=== PATIENT | female | born 1970 | race Two or more races ===

== ENCOUNTER → 2024-05-06 | Outpatient (CLI) | payer MEDICAID, SELFPAY ==
--- NOTE | 2024-05-06 15:05 | XR_ITS ---
Examination: PA lateral chest 2 views TECHNIQUE: Upright PA lateral chest 2 views Exam date and time: May 06, 2024 1541 hours Comparison July 29, 2022 INDICATIONS: Coughing beginning one week ago. FINDINGS: Stable nodule left upper lobe No interval pneumonia or pulmonary edema Normal heart size IMPRESSION: No interval pneumonia or pulmonary edema
== END | disposition home or self-care (01) ==
PROVIDERS: PCP Obstetrics & Gynecology; Referring Provider Obstetrics & Gynecology; Visit Provider Obstetrics & Gynecology
DX: R05.9 Cough, unspecified (principal)
CPT/HCPCS: 71046

== ENCOUNTER 2024-11-23 20:38 | Inpatient (IN) | payer MEDICAID, SELFPAY ==
--- NOTE | 2024-11-23 20:44 | EKG_ITS ---
[facility] Test Date: 2024-11-23 Pat Name: LEESA LEDEZMA Department: Room: - Gender: Female Corporate Legal Manager: : 1970 Requested By: ED Temporary Provider Order Number: [id number] Reading MD: ED Temporary Provider Measurements Intervals [place] Rate: 113 P: 17 AL: 146 QRS: 23 QRSD: 82 T: 0 QT: 285 QTc: 391 Interpretive Statements SINUS TACHYCARDIA NONSPECIFIC T-WAVE ABNORMALITY ABNORMAL RHYTHM ECG Compared to ECG 07/29/2022 14:02:15 Sinus rhythm no longer present Sinus arrhythmia no longer present T-wave abnormality still present /store/S0/[id number].pdf
[2024-11-23 20:45] VITALS: BP 181/104; PULSE 113; RESP 16; TEMP 37.1; O2SAT 97
--- NOTE | 2024-11-23 20:51 | PD.EDRME ---
Rapid Medical Screening Exam RME Arrival date/time: 11/23/24 20:38 Chief Complaint: General Adult/Misc Complain Time Seen by Provider: 11/23/24 21:24 Vital signs: Vital Signs Temperature 98.8 F 11/23/24 20:45 Pulse Rate 113 H 11/23/24 20:45 Respiratory Rate 16 11/23/24 20:45 Blood Pressure 181/104 H 11/23/24 20:45 Pulse Oximetry (%) 97 11/23/24 20:45 Oxygen Delivery Method Room Air 11/23/24 20:45 RME Narrative: Daughter reports left facial droop, left arm heaviness and left leg shaking x 2 hours. Patient c/o bad headache.
--- NOTE | 2024-11-23 20:52 | XR_ITS ---
Examination: CT brain head without contrast. 2-D sagittal coronal reconstructions Date and time of exam:November 23, 2024 2104 hours INDICATIONS: Stroke alert, onset focal neurologic deficits and a left facial droop CTDI: vol (mGy):48 DLP: (mGycm):950 Technique: Multiple CT axial sections of the brain have been obtained, 5 mm slice thickness. Contrast has not been administered. 2-D sagittal, coronal reconstructions have been obtained Low dose protocols were performed. One or more of the following dose reduction techniques were used; automated exposure control, adjustment of the mA and/or KV according to patient size, use of iterative reconstruction technique. Findings: No significant ventricular enlargement. Small cerebral calcifications Intra-axial or extra-axial hemorrhage density is not seen. No mass effect or midline shift Basal cisterns are not remarkable. Fourth ventricle is midline. Cranial vault intact. Impression: Negative for acute hemorrhage, mass effect or midline shift Brain MRI follow-up would best assess for demyelinating disease, acute ischemic change
--- NOTE | 2024-11-23 20:52 | XR_ITS ---
Examination: CTA carotids with intravenous contrast CTA brain, head with intravenous contrast. 2-D sagittal, coronal reconstructions. 3-D reconstructions. Exam date and time: November 23, 2024 2108 hours INDICATIONS: Stroke alert, onset left-sided body weakness today CTDI: vol (mGy) 11 DLP: (mGycm) 441 Technique: Multiple CTA axial brain, head carotid images post intravenous contrast injection 95 cc, Isovue-370. 2-D sagittal, coronal reconstructions. 3-D reconstructions, 3-D post processing including vascular maximum intensity projection images. Low dose protocols were performed. One or more of the following dose reduction techniques were used; automated exposure control, adjustment of the mA and/or KV according to patient size, use of iterative reconstruction technique. 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
--- NOTE | 2024-11-23 21:03 | PC.NURSE ---
DR. HECTOR SLATER FROM [facility] CALLED FOR CONSULT TO R/O STROKE.
[2024-11-23 21:13] LABS: Basophils # (Auto) 0.0 Thou/mm3 (0.0-0.2); Basophils % (Auto) 0 % (0-2.5); Eosinophils # (Auto) 0.1 Thou/mm3 (0.0-0.5); Eosinophils % (Auto) 1 % (0-10); Hematocrit 44.7 % (36.0-46.0); Hemoglobin 15.8 g/dL (12.0-16.0); Immature Granulocytes Auto 0.03 Thou/mm3 (0.00-0.00); Lymphocytes # (Auto) 1.7 Thou/mm3 (1.0-4.8); Lymphocytes % (Auto) 19 % (10-50); Mean Corpuscular HGB Conc 35.3 g/dl (31.0-37.0); Mean Corpuscular Hemoglobin 31.3 pg (25.0-35.0); Mean Corpuscular Volume 89 fL (80-100); Monocytes # (Auto) 0.8 Thou/mm3 (0.0-0.8); Monocytes % (Auto) 9 % (0-12); Neutrophils # (Auto) 6.3 Thou/mm3 (1.8-7.7); Neutrophils % (Auto) 70 % (37-80); Nucleated Red Blood Cell # 0.00 Thou/mm3 (0.00-0.00); Nucleated Red Blood Cell % 0 /100 WBC (0); Platelet Count 248 Thou/mm3 (140-440); RDW Standard Deviation 40.7 fL (36.4-46.3); Red Blood Count 5.04 Miln/mm3 (4.00-5.20); White Blood Count 9.0 Thou/mm3 (3.6-11.0)
[2024-11-23 21:23] VITALS: PULSE 112
[2024-11-23 21:27] VITALS: BP 151/96; PULSE 109; RESP 20; TEMP 37; O2SAT 100
[2024-11-23 21:27] LABS: INR 0.9 (0.9-1.3); Partial Thromboplastin Time 28.4 Seconds (22.0-36.0); Prothrombin Time 10.4 Seconds (9.0-12.2)
[2024-11-23 21:39] LABS: Alanine Aminotransferase 25 U/L (10-49); Albumin, Serum 4.9 gm/dL (3.5-5.0); Albumin/Globulin Ratio 1.6 (1.2-2.2); Alkaline Phosphatase 149 U/L (46-116); Anion Gap 7 (7-16); Aspartate Amino Transferase 19 U/L (0-34); BUN/Creatinine Ratio 13 Ratio (12-20); Bilirubin,Total 0.7 mg/dL (0.3-1.2); Blood Urea Nitrogen 9 mg/dL (9-23); Calcium 10.7 mg/dL (8.3-10.6); Calcium (Corrected) 10.7 mg/dL (8.5-10.1); Carbon Dioxide 27.0 mMol/L (20.0-31.0); Chloride 104 mMol/L (98-107); Creatinine (Component) 0.7 mg/dL (0.6-1.3); Globulin 3.0 gm/dL (2.3-3.5); Glucose 169 mg/dL (74-106); Magnesium 2.1 mg/dL (1.6-2.6); Osmolality,Calculated 278 (275-295); Potassium 4.1 mMol/L (3.4-5.1); Sodium 138 mMol/L (136-145); Total Protein 7.9 gm/dL (5.7-8.2); Troponin I < 0.002 ng/mL (0.0-0.045); eGFR > 60 See Note
--- NOTE | 2024-11-23 21:42 | ESCONSULT_ITS ---
Tele Neuro Consultation Consultation Date 11/23/24 Most Recent Vital Signs Last Vital Signs Temp 98.6 F 11/23/24 21:27 Pulse 109 H 11/23/24 21:27 Resp 20 11/23/24 21:27 BP 151/96 H 11/23/24 21:27 Pulse Ox 100 11/23/24 21:27 O2 Del Method Room Air 11/23/24 21:27 Laboratory-Coagulation Panel PT 10.4 Seconds (9.0-12.2) 11/23/24 21:01 INR 0.9 (0.9-1.3) 11/23/24 21:01 APTT 28.4 Seconds (22.0-36.0) 11/23/24 21:01 Consultation Narrative [facility] Patient Name:???Eli Paredes Date of :???1970 Identification Number:??? Date of Service:???11/23/2024 20:56:09 Diagnosis:?G45.9 - Transient cerebral ischemic attack, unspecified Impression: ?54yoF hx of DM and HTN present with transient episode of left arm numbness. CT head neg for acute finding. Current exam with NIHSS 0. Patient confirmed she is back to baseline. She reports intermittent left sided symptoms recently, most recent episode 3 weeks ago. Presentation concerning for TIA, recommend admission for further workup. ? ?CTA prelim read neg for LVO, pending report. ? ?Recommendation ?- DAPT for 21 days follow by aspirin 81mg daily ?- Permissive HTN for 24hr. ?- MR brain w/o ?-TTE w/ bubble ?-Lipid panel (Goal LDL <70) ?-HgA1c (goal <7%) ?-Start or continue high intensity statin ? Our recommendations are outlined below. Recommendations: ? Stroke/Telemetry Floor ? Neuro Checks (Q4) ? Bedside Swallow Eval ? DVT Prophylaxis ? IV Fluids, Normal Saline ? Head of Bed 30 Degrees ? Euglycemia and Avoid Hyperthermia (PRN Acetaminophen) ? Bolus with Clopidogrel 300 mg bolus x1 and initiate dual antiplatelet th erapy with Aspirin 81 mg daily and Clopidogrel 75 mg daily ? Antihypertensives PRN if Blood pressure is greater than 220/120 or there is a concern for End organ damage/contraindications for permissive HTN. If blood pressure is greater than 220/120 give labetalol PO or IV or Vasotec IV with a goal of 15% reduction in BP during the first 24 hours. Sign Out: ? Discussed with Emergency Department Provider Advanced Imaging: CTA Head and Neck Completed. LVO:No Patient is not a candidate for CORDELIA Metrics: Last Known Well: 11/23/2024 18:00:00 Dispatch Time: 11/23/2024 20:56:09 Arrival Time: 11/23/2024 20:40:00 Initial Response Time: 11/23/2024 21:02:27Symptoms: left arm numbness . Initial patient interaction: 11/23/2024 21:05:15 NIHSS Assessment Completed: 11/23/2024 21:12:21Patient is not a candidate for Thrombolytic. Thrombolytic Medical Decision: 11/23/2024 21:12:22Patient was not deemed candidate for Thrombolytic because of following reasons: Resolved symptoms . CT Head: CT head unremarkable for acute infarction or hemorrhage per Radiology: Impression: Negative for acute hemorrhage, mass effect, or midline shift. I personally reviewed all the CT images that were available to me and it showed: no acute finding Primary Provider Notified of Diagnostic Impression and Management Plan on: 11/23/2024 21:36:39 History of Present Illness:Patient is a 54 year old Female. Patient was brought by private transportation with symptoms of left arm numbness . Patient confirmed that around 6PM while she was on the way home she suddenly developed numbness involving her whole left arm. She denies neck pain or radiating pain down her arm. She had some pain on top of her head. Daughter also told her she had some left facial droop. She also report there were some difficulty using her left arm. The symptoms went away by 7pm. Patient reports she had previous episodes of transient left sided symptoms. Last one was 3 weeks ago with left leg shakiness associated with elevated glucose. At time of teleneuro eval patient confirmed she is back to baseline. Past Medical History: ?Hypertension ?Diabetes Mellitus Other PMH:? DM, HTN Medications: No Anticoagulant use? No Antiplatelet use Reviewed EMR for current medications Allergies:? Reviewed,NKDA Social History: Smoking: No Alcohol Use: No Family History: There is no family history of premature cerebrovascular disease pertinent to this consultation ROS : 14 Points Review of Systems was performed and was negative except mentioned in HPI. Past Surgical History: There Is No Surgical History Contributory To Today?s Visit Examination: BP(181/104),?Pulse(113),?Blood Glucose(177) 1A: Level of Consciousness - Alert; keenly responsive?+ 0 1B: Ask Month and Age - Both Questions Right?+ 0 1C: Blink Eyes & Squeeze Hands - Performs Both Tasks?+ 0 2: Test Horizontal Extraocular Movements - Normal?+ 0 3: Test Visual Martinez - No Visual Loss?+ 0 4: Test Facial Palsy (Use Grimace if Obtunded) - Normal symmetry?+ 0 5A: Test Left Arm Motor Drift - No Drift for 10 Seconds?+ 0 5B: Test Right Arm Motor Drift - No Drift for 10 Seconds?+ 0 6A: Test Left Leg Motor Drift - No Drift for 5 Seconds?+ 0 6B: Test Right Leg Motor Drift - No Drift for 5 Seconds?+ 0 7: Test Limb Ataxia (FNF/Heel-Alfred) - No Ataxia?+ 0 8: Test Sensation - Normal; No sensory loss?+ 0 9: Test Language/Aphasia - Normal; No aphasia?+ 0 10: Test Dysarthria - Normal?+ 0 11: Test Extinction/Inattention - No abnormality?+ 0 NIHSS Score:?0 Pre-Morbid Modified [place] Scale:0 Points = No symptoms at all Spoke with :?Dr. Soria This consult was conducted in real time using interactive audio and video technology. Patient was informed of the technology being used for this visit and agreed to proceed. Patient located in hospital and provider located at home/office setting. Patient is being evaluated for possible acute neurologic impairment and high probability of imminent or life-threatening deterioration. I spent total of 40 minutes providing care to this patient, including time for face to face visit via telemedicine, review of medical records, imaging studies and discussion of findings with providers, the patient and/or family. Dr Kash Christensen [facility] For Inpatient follow-up with [facility] physician please call [facility] at . As we are not an outpatient service for any post hospital discharge needs please contact the hospital for assistance. If you have any questions for the [facility] physicians or need to reconsult for clinical or diagnostic changes please contact us via [facility] at .
--- NOTE | 2024-11-23 21:47 | PD.EDNEURO ---
Neuro Symptoms Deficit-RME/HPI General Chief Complaint: General Adult/Misc Complain Stated Complaint: HIGH BLOOD PRESSURE Time Seen by Provider: 11/23/24 21:24 Arrival date/time: 11/23/24 20:38 RME / HPI RME / HPI Narrative: Daughter reports left facial droop, left arm heaviness and left leg shaking x 2 hours. Patient c/o bad headache. DR SORIA MAIN ED EVALUATION: 54 y/o female with Hx of HTN and Type II DM presents to ED c/o LUE and LLE weakness. Patient feels weakness in the left foot and is experiencing spasming in the back of the left thigh. No pain reported overall. Related Data Home Medications ?Medication ?Instructions ?Recorded ?Confirmed dapagliflozin propaned 5 1 tab PO BID 11/24/24 11/24/24 mg-metformin ER 1,000 mg tablet, ext rel 24hr (Xigduo XR) lisinopril 20 mg tablet 20 mg PO DAILY 11/24/24 11/24/24 semaglutide 0.25 mg or 0.5 mg (2 0.25 mg subcut .EVERY WEEK 11/24/24 11/24/24 mg/3 mL) subcutaneous pen injector (Ozempic) Previous Rx's ?Medication ?Instructions ?Recorded aspirin 81 mg tablet 81 mg PO QDAY stroke prevention 30 11/26/24 days #30 tabs atorvastatin 80 mg tablet 80 mg PO HS 30 days #30 tabs 11/26/24 clopidogrel 75 mg tablet 75 mg PO QDAY #21 tabs 11/26/24 Allergies Allergy/AdvReac Type Severity Reaction Status Date / Time No Known Allergies Allergy Unverified 11/25/24 19:47 Review of Systems Review of Systems Systems Reviewed: All systems reviewed, normal except as documented Past Medical History Past Medical History CARDIAC: Positive Hypertension ENDOCRINE: Positive Diabetes Mellitus Type 2 ED Exam Narrative Physical exam: GENERAL APPEARANCE: alert and oriented x 4, well-developed, well-nourished, no acute distress VITALS: All vitals were reviewed and the pulse ox is 100% on room air, which is normal according to my interpretation. HEENT: Normocephalic, atraumatic; pupils equal, round, reactive to light; EOMI; mucous membranes pink, moist; oropharynx clear NECK: Supple LUNGS: CTABL; no wheezes, no rales, no rhonchi HEART: Regular rate, regular rhythm; normal S1, S2; no murmurs ABDOMEN: non distended; normal BS; soft, no tenderness, no guarding, no rebound; no masses, no organomegaly, no hernia BACK: no CVA tenderness EXTREMITIES: atraumatic; no edema NEUROLOGIC: awake; alert and oriented x4; cranial nerves II-XII grossly intact; no focal sensory or motor deficits PSYCHIATRIC: appropriate mood and affect SKIN: warm, dry, normal color; no rashes Course Quality Measures Suspected type of Stroke: TIA Tenecteplase given: Reason(s) TPA not given: Stroke severity too mild (non-disabling) not given stroke Orders Category Date Time Status Patient Condition Routine Admission 11/23/24 22:59 Ordered Aspiration precautions NOW Care 11/23/24 23:00 Completed Bedside Blood Glucose NOW Care 11/23/24 20:52 [address] Sales Driver NOW Care 11/23/24 20:52 Completed Continuous Pulse Oximetry NOW Care 11/23/24 20:52 Completed Continuous Pulse Oximetry NOW Care 11/23/24 22:59 Completed EKG (ED ONLY) *Do not use* NOW Care 11/23/24 20:44 Completed Flu & Pneumonia Vaccine Screen ONCE Care 11/23/24 22:59 Completed Head of Bed Elevation NOW Care 11/23/24 22:59 Completed Insert IV NOW Care 11/23/24 20:52 Completed MRI Screening NOW Care 11/23/24 23:04 Completed Miscellaneous Nursing Order NOW Care 11/23/24 22:59 Completed NPO NOW Care 11/23/24 20:52 Completed NPO NOW Care 11/23/24 23:00 Completed Neuro Check Q4H Care 11/23/24 22:59 Completed Notify provider NEEDED Care 11/23/24 22:59 Completed Nurse Swallow Screen X1 Care 11/23/24 22:59 Completed Nurse Swallow Screen x1 Care 11/23/24 20:52 Completed Seizure precautions NEEDED Care 11/23/24 22:59 Completed Sequential Compression Device QSHIFT Care 11/23/24 22:59 Completed Consult to Neurology / Tele-Neurology Routine Cons 11/23/24 20:52 Active Consult to Neurology / Tele-Neurology Routine Cons 11/23/24 23:02 Active Referral Physical Therapy Routine Cons 11/23/24 23:02 Completed Referral Speech Therapy Routine Cons 11/23/24 23:02 Completed Diet NPO (NOW) Diet 11/23/24 23:[address] angio stroke protocol Stat Exams 11/23/24 20:[address] stroke protocol Stat Exams 11/23/24 20:52 Completed EKG (ED Only) Stat Exams 11/23/24 20:44 Draft CBC AM DRAW Lab 11/24/24 04:20 Completed CBC AM DRAW Lab 11/25/24 06:08 Completed CBC AM DRAW Lab 11/26/24 05:38 Completed CBC Stat Lab 11/23/24 21:01 Completed Comprehensive Metabolic Panel AM DRAW Lab 11/24/24 04:20 Completed Comprehensive Metabolic Panel AM DRAW Lab 11/25/24 06:08 Completed Comprehensive Metabolic Panel AM DRAW Lab 11/26/24 05:38 Completed Comprehensive Metabolic Panel Stat Lab 11/23/24 21:01 Completed Drug Screen,Urine Stat Lab 11/23/24 22:22 Completed Lipid Panel AM DRAW Lab 11/24/24 04:20 Completed Magnesium AM DRAW Lab 11/24/24 04:20 Completed Magnesium AM DRAW Lab 11/25/24 06:08 Completed Magnesium AM DRAW Lab 11/26/24 05:38 Completed Magnesium Stat Lab 11/23/24 21:01 Completed Partial Thromboplastin Time Stat Lab 11/23/24 21:01 Completed Phosphorous AM DRAW Lab 11/24/24 04:20 Completed Phosphorous AM DRAW Lab 11/25/24 06:08 Completed Phosphorous AM DRAW Lab 11/26/24 05:38 Completed Prothrombin Time with INR Stat Lab 11/23/24 21:01 Completed Thyroid Stimulating Hormone AM DRAW Lab 11/24/24 04:20 Completed Troponin I Stat Lab 11/23/24 21:01 Completed Urinalysis Stat Lab 11/23/24 22:22 Completed Acetaminophen Tab [Tylenol Tab] Med 11/23/24 22:59 Discontinued 1,000 mg PO Q6H PRN Acetaminophen Tab [Tylenol Tab] Med 11/23/24 22:59 Discontinued 650 mg PO Q6H PRN Aspirin [Ecotrin] Med 11/23/24 21:37 Discontinued 81 mg PO X1 ONE Clopidogrel [Plavix] Med 11/23/24 21:37 Discontinued 300 mg PO X1 ONE Labetalol IV [Trandate IV] Med 11/23/24 22:59 Discontinued 10 mg IVP Q6H PRN Labetalol IV [Trandate IV] Med 11/23/24 21:24 Discontinued 10 mg IVP X1 ONE Ondansetron Inj [Zofran Inj] Med 11/23/24 20:52 Discontinued 4 mg IVP Q4HR PRN Ondansetron Inj [Zofran Inj] Med 11/24/24 05:58 Discontinued 4 mg IVP Q6H PRN Sodium Chloride 0.9% 1000 ml [Ns] 1,000 ml Med 11/23/24 23:00 Discontinued IV 75 mls/hr Code Status Routine Oth 11/23/24 22:59 Completed Vital Signs Vital signs: Vital Signs Temperature 98.8 F 11/23/24 20:45 Pulse Rate 113 H 11/23/24 20:45 Respiratory Rate 16 11/23/24 20:45 Blood Pressure 181/104 H 11/23/24 20:45 Pulse Oximetry (%) 97 11/23/24 20:45 Oxygen Delivery Method Room Air 11/23/24 20:45 Neuro Symptoms / Deficit MDM Narrative MDM Narrative:: Scribe Attestation: Trice Floyd, am scribing for and in the presence of Dr. Soria. Provider Notation: Although this document has been carefully reviewed, there may still be some phonetic and other typographical errors.? These errors are purely grammatical due to imperfections in the software program and should not be construed in any way to? compromise the substance of the patient's medical care during this visit. Patient data External records reviewed:: [facility] previous records (Reviewed prior ED records from 07/29/22. Patient was seen for Chest pain.) Clinical information provided by:: patient Social determinants that could affect healthcare access:: none Patient has the following chronic illnesses:: Hypertension, Diabetes Mellitus Type 2 How is presenting disease/condition affected by chronic disease/condition?: exacerbated by Evaluation data The following diagnostics were reviewed and interpreted by me:: lab results, radiology exam(s) and EKG tracing(s) (2048: EKG manual reading, my interpretation: sinus tachycardia, rate: 113 bpm, poor R-wave progressions, no acute ischemic changes.) Lab and/or radiology exams considered but not ordered:: None Interpretation Summary: RADIOLOGY Head/Neck CTA: Patient: LEESA LEDEZMA Med. Record#: [id number] Birthdate: 1970 Age/Sex: 54 / F Location: [facility] Attending Dr: Ordering Physician: Morgan Johnson PA-C Date of Service: 11/23/24 Procedure(s): CT angio stroke protocol Accession Number(s): [id number] cc: Tyson Duncan MD; Morgan Johnson PA-C~ Examination: CTA carotids with intravenous contrast CTA brain, head with intravenous contrast. 2-D sagittal, coronal reconstructions. 3-D reconstructions. Exam date and time: November 23, 2024 2108 hours INDICATIONS: Stroke alert, onset left-sided body weakness today CTDI: vol (mGy) 11 DLP: (mGycm) 441 Technique: Multiple CTA axial brain, head carotid images post intravenous contrast injection 95 cc, [id number]. 2-D sagittal, coronal reconstructions. 3-D reconstructions, 3-D post processing including vascular maximum intensity projection images. Low dose protocols were performed. One or more of the following dose reduction techniques were used; automated exposure control, adjustment of the mA and/or KV according to patient size, use of iterative reconstruction technique. 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 Dictated By: Tyson Duncan MD Signed By: <Electronically signed by Tyson Duncan MD in OV> 11/23/242132 Head CT: Patient: LEESA LEDEZMA. Record#: [id number] Birthdate: 1970 Age/Sex: 54 / F Location: [facility] Attending Dr: Ordering Physician: Morgan Johnson PA-C Date of Service: 11/23/24 Procedure(s): CT stroke protocol Accession Number(s): [id number] cc: Tyson Duncan MD; Morgan Johnson PA-C~ Examination: CT brain head without contrast. 2-D sagittal coronal reconstructions Date and time of exam:November 23, 2024 2104 hours INDICATIONS: Stroke alert, onset focal neurologic deficits and a left facial droop CTDI: vol (mGy):48 DLP: (mGycm):950 Technique: Multiple CT axial sections of the brain have been obtained, 5 mm slice thickness. Contrast has not been administered. 2-D sagittal, coronal reconstructions have been obtained Low dose protocols were performed. One or more of the following dose reduction techniques were used; automated exposure control, adjustment of the mA and/or KV according to patient size, use of iterative reconstruction technique. Findings: No significant ventricular enlargement. Small cerebral calcifications Intra-axial or extra-axial hemorrhage density is not seen. No mass effect or midline shift Basal cisterns are not remarkable. Fourth ventricle is midline. Cranial vault intact. Impression: Negative for acute hemorrhage, mass effect or midline shift Brain MRI follow-up would best assess for demyelinating disease, acute ischemic change Dictated By: Tyson Duncan MD Signed By: <Electronically signed by Tyson Duncan MD in OV> 11/23/242107 Medications / Prescriptions Medications or Prescriptions considered but not ordered:: None Medication administrations:: Medication Administration History Discontinued Medications Acetaminophen (Acetaminophen 325 Mg Tablet) 650 mg PO Q6H PRN PRN Reason: Fever >100.4 Stop: 12/23/24 22:58 Last Admin: 11/25/24 00:17 Dose: 650 mg Documented By: SS Acetaminophen (Acetaminophen 325 Mg Tablet) 1,000 mg PO Q6H PRN PRN Reason: PAIN SCALE 1-3 (mild Stop: 12/23/24 22:58 Aspirin (Aspirin Ec 81 Mg Tabec) 81 mg PO X1 ONE Stop: 11/23/24 21:38 Last Admin: 11/23/24 22:07 Dose: 81 mg Documented By: CB Aspirin (Aspirin Ec 81 Mg Tabec) 81 mg PO QDAY JONA Stop: 12/24/24 08:59 Last Admin: 11/25/24 07:16 Dose: Not Given Documented By: MG Non-Admin Reason: Discontinued Aspirin (Aspirin Ec 81 Mg Tabec) 81 mg PO QDAY JONA Stop: 12/24/24 14:44 Last Admin: 11/26/24 08:27 Dose: 81 mg Documented By: Admin: 11/25/24 08:14 Dose: 81 mg Documented By: Admin: 11/24/24 14:52 Dose: 81 mg Documented By: EF Atorvastatin Calcium (Atorvastatin Calcium 20 Mg Tablet) 80 mg PO HS JONA Stop: 12/24/24 20:59 Last Admin: 11/25/24 20:48 Dose: 80 mg Documented By: Admin: 11/24/24 20:24 Dose: 80 mg Documented By: SS Clopidogrel Bisulfate (Clopidogrel Bisulfate 75 Mg Tablet) 300 mg PO X1 ONE Stop: 11/23/24 21:38 Last Admin: 11/23/24 22:04 Dose: 300 mg Documented By: CB Clopidogrel Bisulfate (Clopidogrel Bisulfate 75 Mg Tablet) 75 mg PO QDAY JONA Stop: 12/24/24 08:59 Last Admin: 11/25/24 07:17 Dose: Not Given Documented By: MG Non-Admin Reason: Discontinued Clopidogrel Bisulfate (Clopidogrel Bisulfate 75 Mg Tablet) 75 mg PO QDAY JONA Stop: 12/24/24 14:44 Last Admin: 11/26/24 08:27 Dose: 75 mg Documented By: Admin: 11/25/24 08:14 Dose: 75 mg Documented By: Admin: 11/24/24 14:52 Dose: 75 mg Documented By: EF Dextrose (Dextrose 50%-Water Inj 50 Ml Syringe) 25 ml IV Q15MIN PRN PRN Reason: BG 50-70 responsive npo pt Stop: 12/23/24 23:06 Dextrose (Dextrose 50%-Water Inj 50 Ml Syringe) 50 ml IV Q15MIN PRN PRN Reason: BG <50 OR BG <70 & pt unresponsive Stop: 12/23/24 23:06 Glucagon (Glucagon Inj 1 Mg Vial) 1 mg IM Q15MIN PRN PRN Reason: BG <70, and no IV access Sodium Chloride (Ns) 1,000 mls @ 75 mls/hr IV .[id number] JONA Stop: 12/23/24 22:59 Last Admin: 11/25/24 16:03 Dose: Not Given Documented By: MG Non-Admin Reason: duplicate Admin: 11/25/24 03:28 Dose: 75 mls/hr Documented By: Infusion: 11/25/24 03:28 Dose: Infused Documented By: Admin: 11/24/24 17:58 Dose: 75 mls/hr Documented By: Infusion: 11/24/24 12:32 Dose: Infused Documented By: Admin: 11/23/24 23:12 Dose: 75 mls/hr Documented By: KM Insulin Human Lispro (Insulin Lispro (Admelog) 1 Unit/0.01 Ml Unit) 0 unit SC Q6HR JONA; Protocol Stop: 12/24/24 00:00 Last Admin: 11/25/24 18:00 Dose: Not Given Documented By: MG Non-Admin Reason: not indicated Admin: 11/25/24 12:08 Dose: Not Given Documented By: MG Non-Admin Reason: BG 120 Admin: 11/25/24 06:35 Dose: Not Given Documented By: SS Non-Admin Reason: blood glucose 122 Admin: 11/25/24 00:23 Dose: Not Given Documented By: SS Non-Admin Reason: blood glucose 136 Admin: 11/24/24 17:58 Dose: Not Given Documented By: LW Non-Admin Reason: Per Protocol Admin: 11/24/24 15:15 Dose: Not Given Documented By: EF Non-Admin Reason: BS 132 Admin: 11/24/24 07:20 Dose: Not Given Documented By: ER Non-Admin Reason: Patient Refused Comments: Patient on Ozempic Admin: 11/24/24 00:44 Dose: Not Given Documented By: CB Non-Admin Reason: Per Protocol Insulin Human Lispro (Insulin Lispro (Admelog) 1 Unit/0.01 Ml Unit) 0 unit SC ACHS JONA; Protocol Stop: 12/25/24 20:59 Last Admin: 11/26/24 11:58 Dose: Not Given Documented By: DL Non-Admin Reason: Per Protocol Admin: 11/26/24 07:38 Dose: Not Given Documented By: DL Non-Admin Reason: Per Protocol Admin: 11/25/24 20:43 Dose: Not Given Documented By: MLD Non-Admin Reason: Per Protocol Labetalol HCl (Labetalol Inj 5 Mg/Ml Vial 20 Ml) 10 mg IVP X1 ONE Stop: 11/23/24 21:25 Last Admin: 11/23/24 22:27 Dose: Not Given Documented By: EE Non-Admin Reason: Cancelled by Provider Labetalol HCl (Labetalol Inj 5 Mg/Ml Vial 20 Ml) 10 mg IVP Q6H PRN PRN Reason: SBP>220, DBP>110 Stop: 12/23/24 22:59 Melatonin (Melatonin 3 Mg Tablet) 3 mg PO X1 ONE Stop: 11/24/24 03:09 Last Admin: 11/24/24 03:55 Dose: 3 mg Documented By: KM Melatonin (Melatonin 3 Mg Tablet) 3 mg PO X1 ONE Stop: 11/26/24 01:15 Last Admin: 11/26/24 01:25 Dose: 3 mg Documented By: JENNA Ondansetron HCl (Ondansetron Inj 2 Mg/Ml Inj 2 Ml) 4 mg IVP Q4HR PRN PRN Reason: NAUSEA OR VOMITING Stop: 12/23/24 20:51 Ondansetron HCl (Ondansetron Inj 2 Mg/Ml Inj 2 Ml) 4 mg IVP Q6H PRN; Protocol PRN Reason: NAUSEA OR VOMITING Stop: 12/24/24 05:57 Potassium Chloride (Potassium Chloride 20 Meq Tabcr) 20 meq PO X1 ONE Stop: 11/26/24 08:17 Last Admin: 11/26/24 08:27 Dose: 20 meq Documented By: MAYELIN See above Consultations Consultation(s) initiated? (list below): Yes Consultation #1 (Physician, Specialty, Details): Discussed with Dr. Kash Christensen,Teleneurologist, for consult. Reviewed the patient?s HPI, PMHx, lab and/or radiology results. Treatment plan was discussed. Dr. Christensen advises patient be placed in observation for permissive hypertention and to start a loading dose of Plavix and some baby aspirin. Time: 21:43 Consultation #2 (Physician, Specialty, Details): Discussed with Dr. Winkler for admission. Reviewed the patient?s HPI, PMHx, lab and/or radiology results. Discussed treatment plan. Will accept for admission. Time: 22:38 Diagnosis Neuro Differential Diagnosis: carpal tunnel syndrome, convulsions, delirium, subarachnoid hemorrhage, peripheral neuropathy, cerebrovascular accident, multiple sclerosis and transient cerebral ischemia Most likely diagnosis given after review of the tests above:: TIA Admission Indicated Admission indicated?: indicated Explain why admission is indicated or not indicated:: TIA Admission Request Was there a request for admission?: Yes Admission Attestation Admission request attestation: Discussed case with [] from Hospitalist service regarding admission. Discussed patients ED course, exam findings, labs, and radiology results. The Hospitalist [agrees,declines] to accept the patient for admission. Disposition Plan Disposition Plan: Admit Critical Care Time Critical Care Time Critical Care Time: No Discharge Plan Plan Patient Disposition: Admit Acute Care w/in Hospital Patient condition on transfer: Stable Problem List Clinical Impression: TIA (transient ischemic attack) Patient/Caregiver Discharge Instructions Discharge Activity: activity as tolerated and resume usual activities
[2024-11-23] MEDS: CLOPIDOGREL BISULFATE 75 MG TABLET 300 MG PO (22:04)
[2024-11-23] MEDS: ASPIRIN EC 81 MG TABEC PO (22:07)
[2024-11-23 22:40] LABS: Collection Type, Urine Clean Catch
[2024-11-23 22:49] LABS: Amphetamine/Methamp Scrn,U Negative (Negative); Barbiturate Screen,Urine Negative (Negative); Benzodiazepines Screen,Urine Negative (Negative); Benzoylecgonine Screen, Ur Negative (Negative); Fentanyl Screen,Urine Negative (Negative); Opiate Screen,Urine Negative (Negative); THC Screen,Urine Negative (Negative)
[2024-11-23 22:57] LABS: Bilirubin,Urine Negative (Negative); Blood,Urine Negative (Negative); Clarity,Urine Clear (Clear/Hazy); Color,Urine Colorless (Lt Yel-Yel); Glucose, Urine 4+ (Negative); Ketones,Urine Negative (Negative); Leukocyte Esterase,Urine Positive (Negative); Nitrite,Urine Negative (Negative); PH,Urine 7.0 (5.0-7.0); Protein,Urine Negative (Neg - Trace); RBC,Urine 1 /hpf (0-3); Specific Gravity,Urine 1.041 (1.001-1.035); Squamous Epithelial Cell,Urine 6 /hpf (0-5); Urobilinogen,Urine Negative mg/dL (0.0-1.0); WBC,Urine < 1 /hpf (0-5)
--- NOTE | 2024-11-23 23:08 | PD.RESHP ---
Documentation for date of: 11/23/24 HPI History of Present Illness Chief complaint: Left-sided weakness History of present illness: 54-year-old female with past medical history of hypertension, diabetes who was brought to the ED by daughter due to left-sided weakness. Patient states that around 5-6 PM of 11/23/2024 patient began having left arm and leg numbness, as well as drooping of the left side of the face all around the same time frame. She also endorses a headache rated 6 out of 10 in the parietal occipital region. Patient also states that her blood pressure was elevated at home today with a systolic blood pressure between 170 and 180. Patient states that she has had similar episodes last 1 being around 3 weeks ago which she states were related to her blood sugar being in the high 300s almost 400s. When asked about blood pressure control at home she states her normal is usually around 160. Upon arrival stroke alert was called and teleneurology recommended admission for further CVA workup. During workup and prior to teleneurology consult patient's symptoms had spontaneously resolved. At this time patient denies any fever, chills, shortness of breath, palpitations, chest pain, nausea, vomiting, sick contacts, recent travel ED course: ED vitals: BP 181/104, HR 113, saturating 97% on room air ED labs: CBC unremarkable, CMP unremarkable, UA negative for UTI however plus for glucose noted, U-Tox negative, EKG shows sinus tachycardia, head CT negative for acute hemorrhage, midline shift, mass effect, head/neck CTA shows no significant arterial stenosis. In the ED patient received aspirin 81, loading dose of Plavix, labetalol PMHx: As above SX Hx: None Social Hx: Denies cigarette use, denies alcohol use, denies illicit substances including THC FH X: Unknown Review of Systems Review of Systems Systems Reviewed: All systems reviewed, normal except as documented Narrative Review of Systems: All 12 systems reviewed and found negative unless otherwise stated in the HPI. Exam Vital Signs Temp Pulse Resp BP Pulse Ox O2 Del Method 98.6 F 109 H 20 151/96 H 100 Room Air 11/23/24 21:27 11/23/24 21:27 11/23/24 21:27 11/23/24 21:27 11/23/24 21:27 11/23/24 21:27 Narrative Exam Physical Exam GENERAL: NAD, AAOx3 HEENT: Moist mucosa. Eyes open, symmetrical, & clear, pupils reactive to light bilaterally CARDIO: Heart RRR, no obvious murmurs PULM: No noted coughing/dyspnea CTA B/L, no R/W/R GI: Abdomen soft, nondistended, no pain on palpation. BSx4 SKIN/MSK/EXT: No wounds/rashes/edema/amputations, no pain on palpation. Pedal pulses present B/L NEURO: AAOx3, no focal neuro deficits, able to move all 4 extremities, equal strength and sensation across all 4 extremities Results: Labs 11/23/24 21:01 11/23/24 21:01 Labs: Short CBC 11/23/24 Range/Units 21:01 WBC 9.0 (3.6-11.0) Thou/mm3 Hgb 15.8 (12.0-16.0) g/dL Hct 44.7 (36.0-46.0) % Plt Count 248 (140-440) Thou/mm3 BMP 11/23/24 21:01 Sodium 138 Potassium 4.1 Chloride 104 Carbon Dioxide 27.0 BUN 9 Creatinine 0.7 Glucose 169 H Calcium 10.7 H Cardiac Enzymes 11/23/24 Range/Units 21:01 Troponin I < 0.002 (0.0-0.045) ng/mL Liver Function 11/23/24 Range/Units 21:01 Total Bilirubin 0.7 (0.3-1.2) mg/dL AST 19 (0-34) U/L ALT 25 (10-49) U/L Alkaline Phosphatase 149 H (46-116) U/L Albumin 4.9 (3.5-5.0) gm/dL Urine 11/23/24 Range/Units 22:22 Urine Color Colorless A (Lt Yel-Yel) Urine Clarity Clear (Clear/Hazy) Urine pH 7.0 (5.0-7.0) Ur Specific [place] 1.041 H (1.001-1.035) Urine Protein Negative (Neg - Trace) Urine Glucose (UA) 4+ A (Negative) Quality Measures Quality Measures stroke Suspected type of Stroke: Acute Ischemic Tenecteplase given: Reason(s) Tenecteplase not given: Outside the time window and Stroke severity too mild (non-disabling) not given Rehab services: PT evaluation ordered and Speech Language Pathology eval ordered VTE Prophylaxis: mechanical Antithrombotic by day 2:: not indicated (describe) Statin ordered: <75 y/o high intensity dose Anticoagulation ordered for A-fib or flutter (current or hx): not indicated Medications Home Medications and Allergies Allergies Allergy/AdvReac Type Severity Reaction Status Date / Time NKA* Allergy Uncoded 06/27/13 09:32 Visit Medications Acetaminophen (Acetaminophen 325 Mg Tablet) 650 mg PO Q6H PRN PRN Reason: Fever >100.4 Stop: 12/23/24 22:58 Acetaminophen (Acetaminophen 325 Mg Tablet) 1,000 mg PO Q6H PRN PRN Reason: PAIN SCALE 1-3 (mild Stop: 12/23/24 22:58 Dextrose (Dextrose 50%-Water Inj 50 Ml Syringe) 25 ml IV Q15MIN PRN PRN Reason: BG 50-70 responsive npo pt Stop: 12/23/24 23:06 Dextrose (Dextrose 50%-Water Inj 50 Ml Syringe) 50 ml IV Q15MIN PRN PRN Reason: BG <50 OR BG <70 & pt unresponsive Stop: 12/23/24 23:06 Glucagon (Glucagon Inj 1 Mg Vial) 1 mg IM Q15MIN PRN PRN Reason: BG <70, and no IV access Sodium Chloride (Ns) 1,000 mls @ 75 mls/hr IV .[id number] JONA Stop: 12/23/24 22:59 Insulin Human Lispro (Insulin Lispro (Admelog) 1 Unit/0.01 Ml Unit) 0 unit SC Q6HR JONA; Protocol Stop: 12/24/24 00:00 Labetalol HCl (Labetalol Inj 5 Mg/Ml Vial 20 Ml) 10 mg IVP Q6H PRN PRN Reason: SBP>220, DBP>110 Stop: 12/23/24 22:59 Ondansetron HCl (Ondansetron Inj 2 Mg/Ml Inj 2 Ml) 4 mg IVP Q4HR PRN PRN Reason: NAUSEA OR VOMITING Stop: 12/23/24 20:51 Ondansetron HCl (Ondansetron Inj 2 Mg/Ml Inj 2 Ml) 4 mg IVP Q6H PRN; Protocol PRN Reason: NAUSEA OR VOMITING Stop: 12/23/24 22:58 Discontinued Medications Aspirin (Aspirin Ec 81 Mg Tabec) 81 mg PO X1 ONE Stop: 11/23/24 21:38 Last Admin: 11/23/24 22:07 Dose: 81 mg Clopidogrel Bisulfate (Clopidogrel Bisulfate 75 Mg Tablet) 300 mg PO X1 ONE Stop: 11/23/24 21:38 Last Admin: 11/23/24 22:04 Dose: 300 mg Labetalol HCl (Labetalol Inj 5 Mg/Ml Vial 20 Ml) 10 mg IVP X1 ONE Stop: 11/23/24 21:25 Last Admin: 11/23/24 22:27 Dose: Not Given Assessment & Plan Plan 54-year-old female with past medical history of diabetes and hypertension who presented to the ED due to left-sided weakness. Patient will be admitted for CVA workup. #CVA workup #Left-sided weakness last well-known around 5-6 PM of 11/23/2024 patient began having left arm and leg numbness, as well as drooping of the left side of the face Symptoms resolved spontaneously on arrival to the ED No TNK was administered as NIH stroke scale on teleneuro evaluation was 0 and was out of window ? Permissive hypertension goal blood pressure systolic 150, first 24 hours ? MRI stroke protocol ? Aspirin 81 mg daily ? Plavix 75 mg daily ? High intensity statin ? IV fluids ? N.p.o. till swallow screen/speech eval ? Speech eval consulted, physical therapy consulted ? In-house neurology consulted, appreciate recs ? Labetalol as needed for blood pressure > 220/110 ? Neurochecks every 4 hours #Hypertension Permissive hypertension for first 24 hours, only 15% BP reduction ? Can resume home antihypertensives after first 24 hours #Diabetes mellitus type 2 ?Follow-up A1c ? SSI ? Hypoglycemia protocol in place Health Maintenance: Disposition: Telemetry, stroke workup Fluids: NS Feeding: N.p.o. till speech eval per nurse swallow screen Thrombo prophylaxis: SCDs Gastric Ulcer prophylaxis: None CODE STATUS: Full code Case discussed with my attending Dr. Edison Laboy MD PGY-1 Disclaimer: Despite multiple revisions, due to the dictation software being used, the document bellow may not be free of grammatical errors including phonetic/typographic errors. However, this does not deter from our commitment to providing health care in the patient's best interest in mind. Attending Provider Attestation/Addendum 54-year-old female with diabetes and hypertension was admitted after she felt numbness of the left side involving the arm and leg. She felt numb behind right thigh area. This happened around 6 PM today. She was in her car with her children. She got scared when they were driving at a high location with her daughter on the steering wheel. She said her blood sugar was 118 when they went back home. Her blood pressure was elevated. She took a shower and then her daughters brought her to the ER. She has some pressure-like symptoms on the left side of her head. During my evaluation her symptoms of numbness of the left side are gone completely. She has no syncopalpresyncopal episode. CT scan of the brain without contrast showed no infarct no hemorrhage no midline shift. Blood pressure is 160/90 heart rate 110. special effects technician showed sinus tachycardia. I discussed with and supervised the resident physician who took care of this patient. I agree with the assessment and plan as above.
[2024-11-23] MEDS: SODIUM CHLORIDE 0.9% 1000 ML 1,000 ML 75 ML IV (23:12)
[2024-11-23 23:13] VITALS: BP 160/93; PULSE 103; RESP 16; TEMP 37.3; O2SAT 97
[2024-11-24] VITALS (7 sets, daily range): BP systolic 114–143; BP diastolic 61–97; PULSE 99–117; RESP 15–30; TEMP 36.6–37.2; O2SAT 95–100
[2024-11-24] MEDS: MELATONIN 3 MG TABLET PO (03:55)
[2024-11-24 05:02] LABS: Basophils # (Auto) 0.0 Thou/mm3 (0.0-0.2); Basophils % (Auto) 0 % (0-2.5); Eosinophils # (Auto) 0.1 Thou/mm3 (0.0-0.5); Eosinophils % (Auto) 1 % (0-10); Hematocrit 41.7 % (36.0-46.0); Hemoglobin 14.6 g/dL (12.0-16.0); Immature Granulocytes Auto 0.03 Thou/mm3 (0.00-0.00); Lymphocytes # (Auto) 1.2 Thou/mm3 (1.0-4.8); Lymphocytes % (Auto) 16 % (10-50); Mean Corpuscular HGB Conc 35.0 g/dl (31.0-37.0); Mean Corpuscular Hemoglobin 31.2 pg (25.0-35.0); Mean Corpuscular Volume 89 fL (80-100); Monocytes # (Auto) 0.9 Thou/mm3 (0.0-0.8); Monocytes % (Auto) 11 % (0-12); Neutrophils # (Auto) 5.3 Thou/mm3 (1.8-7.7); Neutrophils % (Auto) 71 % (37-80); Nucleated Red Blood Cell # 0.00 Thou/mm3 (0.00-0.00); Nucleated Red Blood Cell % 0 /100 WBC (0); Platelet Count 228 Thou/mm3 (140-440); RDW Standard Deviation 40.7 fL (36.4-46.3); Red Blood Count 4.68 Miln/mm3 (4.00-5.20); White Blood Count 7.4 Thou/mm3 (3.6-11.0)
[2024-11-24 06:21] LABS: Glucose Estimated Average 151 mg/dL (80-131); Hemoglobin A1C 6.9 % Hgb (4.8-6.0)
[2024-11-24 06:55] LABS: Alanine Aminotransferase 25 U/L (10-49); Albumin, Serum 4.3 gm/dL (3.5-5.0); Albumin/Globulin Ratio 1.5 (1.2-2.2); Alkaline Phosphatase 133 U/L (46-116); Anion Gap 13 (7-16); Aspartate Amino Transferase 22 U/L (0-34); BUN/Creatinine Ratio 13 Ratio (12-20); Bilirubin,Total 0.5 mg/dL (0.3-1.2); Blood Urea Nitrogen 9 mg/dL (9-23); Calcium 9.6 mg/dL (8.3-10.6); Calcium (Corrected) 9.6 mg/dL (8.5-10.1); Carbon Dioxide 21.0 mMol/L (20.0-31.0); Cardiac Risk Estimate 3.0 RATIO (3.7-5.6); Chloride 106 mMol/L (98-107); Cholesterol 140 mg/dL (132-200); Creatinine (Component) 0.7 mg/dL (0.6-1.3); Globulin 2.8 gm/dL (2.3-3.5); Glucose 151 mg/dL (74-106); HDL Cholesterol 46 mg/dL (40-60); LDL Cholesterol,Calculated 73 mg/dL (0-130); Magnesium 2.1 mg/dL (1.6-2.6); Osmolality,Calculated 281 (275-295); Phosphorous 3.3 mg/dL (2.4-5.1); Potassium 4.3 mMol/L (3.4-5.1); Sodium 140 mMol/L (136-145); Thyroid Stimulating Hormone 0.61 uIU/mL (0.55-4.78); Total Protein 7.1 gm/dL (5.7-8.2); Triglycerides 103 mg/dL (30-150); eGFR > 60 See Note
--- NOTE | 2024-11-24 12:12 | PD.RESPRO ---
Documentation for date of: 11/24/24 Subjective Subjective Interval history: Overnight admission for left sided weakness/numbness of the arm and leg along with L facial droop.?Stroke alert was called and admission for stroke rule out was initiated. Patient seen and examined at bedside this AM.?Patient reports that symptoms have resolved. She reports that there was an associated left shoulder pain and headache when symptoms onset last night. Her BP was also high with systolic in the 170-180s. Labs and vitals were reviewed.?She had sinus tachycardia but otherwise BP was trending to normal without any antihypertensives given. Labs were unremarkable other than A1c 6.9. Patient is currently on Ozempic. MRI, echo, and Neuro recommendations are pending. Patient will receive aspirin, Plavix, and statin for now. No further complaints at this time. Review of systems otherwise negative except what is mentioned above. Exam Vital Signs Temp Pulse Resp BP Pulse Ox O2 Del Method 98.3 F 110 H 20 115/86 H 96 Room Air 11/24/24 10:11/24/24 10:11/24/24 10:11/24/24 10:11/24/24 10:11/24/24 10:00 Narrative Exam Physical Exam General: Awake and in no acute distress. Conversational and non-toxic appearing. HEENT: Normocephalic, atraumatic, mucous membranes moist. No facial droop, no slurring of speech or dysarthria. Heart: Regular rate and rhythm, normal S1 and S2, no murmurs. Lungs: Clear to auscultation with no wheezing or crackles. Abdomen: Soft, nondistended, nontender, positive bowel sounds. ?No guarding or rebound tenderness. Neurologic: Alert and oriented x3, no gross neurological deficit, and patient able to move all 4 extremities. Strength 5/5 in bilateral upper and lower extremities, 5/5 finger and mobility architect manager strength according to my examination. Extremities: No edema. Skin: No rash or ecchymoses. Objective Labs 11/24/24 04:20 11/24/24 04:20 Labs: Laboratory Results - last 24 hr 11/23/24 11/23/24 11/24/24 21:01 22:22 04:20 WBC 9.0 7.4 RBC 5.04 4.68 Hgb 15.8 14.6 Hct 44.7 41.7 MCV 89 89 MCH 31.3 31.2 MCHC 35.3 35.0 RDW Std Deviation 40.7 40.7 Plt Count 248 228 Neut % (Auto) 70 71 Lymph % (Auto) 19 16 [place] % (Auto) 9 11 Eos % (Auto) 1 1 Baso % (Auto) 0 0 Neut # (Auto) 6.3 5.3 Lymph # (Auto) 1.7 1.2 [place] # (Auto) 0.8 0.9 H Eos # (Auto) 0.1 0.1 Baso # (Auto) 0.0 0.0 Immature Gran # (Auto) 0.03 H 0.03 H Absolute Nucleated RBC 0.00 0.00 Immature Gran % 0 0 Nucleated RBC % 0 0 PT 10.4 INR 0.9 APTT 28.4 Sodium 138 140 Potassium 4.1 4.3 Chloride 104 106 Carbon Dioxide 27.0 21.0 Anion Gap 7 13 BUN 9 9 Creatinine 0.7 0.7 Estim Creat Clear Calc Not Performed. Not Performed. eGFR > 60 > 60 BUN/Creatinine Ratio 13 13 Glucose [address] Glu mg/dL 151 H Hemoglobin A1c 6.9 H Calculated Osmolality 278 281 Calcium 10.7 H 9.6 Corrected Calcium 10.7 H 9.6 Phosphorus 3.3 Magnesium 2.1 2.1 Total Bilirubin 0.7 0.5 AST 19 22 ALT 25 25 Alkaline Phosphatase 149 H 133 H Troponin I < 0.002 Total Protein 7.9 7.1 Albumin 4.9 4.3 D Globulin 3.0 2.8 Albumin/Globulin Ratio 1.6 1.5 Triglycerides 103 Cholesterol 140 LDL Cholesterol, Calc 73 HDL Cholesterol 46 Cholesterol/HDL Ratio 3.0 L TSH 0.61 Ur Collection Type Clean Catch Urine Color Colorless A Urine Clarity Clear Urine pH 7.0 Ur Specific [place] 1.041 H Urine Protein Negative Urine Glucose (UA) 4+ A Urine Ketones Negative Urine Blood Negative Urine Nitrite Negative Urine Bilirubin Negative Urine Urobilinogen (Auto) Negative Ur Leukocyte Esterase Positive Urine RBC 1 Urine WBC < 1 Ur Squamous Epith Cells 6 H Urine Bacteria None Urine Opiates Screen Negative Urine Fentanyl Screen Negative Ur Barbiturates Screen Negative U Amphetamin/Meth Scrn Negative U Benzodiazepines Scrn Negative U Cocaine Metab Screen Negative U Marijuana (THC) Screen Negative Quality Measures Quality Measures stroke Suspected type of Stroke: Acute Ischemic Tenecteplase given: Reason(s) Tenecteplase not given: Outside the time window and Stroke severity too mild (non-disabling) not given Rehab services: PT evaluation ordered VTE Prophylaxis: pharmaceutical Antithrombotic by day 2:: not indicated (describe) Statin ordered: <75 y/o high intensity dose Anticoagulation ordered for A-fib or flutter (current or hx): not indicated Assessment & Plan Assessment Current Active Medications: Generic Name Dose Route Start Last Admin Trade Name Freq PRN Reason Stop Dose Admin Acetaminophen 650 mg 11/23/24 22:59 Acetaminophen 325 Mg Tablet PO 12/23/24 22:58 Q6H PRN Fever >100.4 Acetaminophen 1,000 mg 11/23/24 22:59 Acetaminophen 325 Mg Tablet PO 12/23/24 22:58 Q6H PRN PAIN SCALE 1-3 (mild Aspirin 81 mg 11/24/24 09:00 Aspirin Ec 81 Mg Tabec PO 12/24/24 08:59 QDAY JONA Atorvastatin Calcium 80 mg 11/24/24 21:00 Atorvastatin Calcium 20 Mg Tablet PO 12/24/24 20:59 HS [facility] Clopidogrel Bisulfate 75 mg 11/24/24 09:00 Clopidogrel Bisulfate 75 Mg Tablet PO 12/24/24 08:59 QDAY JONA Dextrose 25 ml 11/23/24 23:07 Dextrose 50%-Water Inj 50 Ml Syringe IV 12/23/24 23:06 Q15MIN PRN BG 50-70 responsive npo pt Dextrose 50 ml 11/23/24 23:07 Dextrose 50%-Water Inj 50 Ml Syringe IV 12/23/24 23:06 Q15MIN PRN BG <50 OR BG <70 & pt unresponsive Glucagon 1 mg 11/23/24 23:07 Glucagon Inj 1 Mg Vial IM Q15MIN PRN BG <70, and no IV access Sodium Chloride 1,000 mls @ 75 mls/hr 11/23/24 23:00 11/23/24 23:12 Ns IV 12/23/24 22:59 75 mls/hr .[id number] JONA Administration Insulin Human Lispro 0 unit 11/24/24 00:00 11/24/24 07:20 Insulin Lispro (Admelog) 1 Unit/0.01 Ml Unit SC 12/24/24 00:00 Not Given Q6HR [facility] Protocol Labetalol HCl 10 mg 11/23/24 22:59 Labetalol Inj 5 Mg/Ml Vial 20 Ml IVP 12/23/24 22:59 Q6H PRN SBP>220, DBP>110 Ondansetron HCl 4 mg 11/24/24 05:58 Ondansetron Inj 2 Mg/Ml Inj 2 Ml IVP 12/24/24 05:57 Q6H PRN NAUSEA OR VOMITING Protocol Plan 54-year-old female with past medical history of diabetes and hypertension who presented to the ED due to left-sided weakness. Patient will be admitted for CVA workup. #CVA workup, rule out #Left-sided weakness Last well-known around 5-6 PM of 11/23/2024 patient began having left arm and leg numbness, as well as drooping of the left side of the face Symptoms resolved spontaneously on arrival to the ED Possible TIA versus complex migraine versus focal seizure versus musculoskeletal etiology No TNK was administered as NIH stroke scale on teleneuro evaluation was 0 and was out of window ? Permissive hypertension goal blood pressure systolic 150, first 24 hours ? MRI stroke protocol ? Aspirin 81 mg daily ? Plavix 75 mg daily ? High intensity statin ? IV fluids ? Diet resumed, passed swallow screen ? Speech eval consulted, physical therapy consulted ? In-house neurology consulted, appreciate recs ? Labetalol as needed for blood pressure > 220/110 ? Neurochecks every 4 hours #Hypertension Permissive hypertension for first 24 hours, only 15% BP reduction ? Can resume home antihypertensives after first 24 hours #Diabetes mellitus type 2 A1c 6.9 ? SSI ? Hypoglycemia protocol in place Health Maintenance: Disposition: Telemetry, stroke workup Fluids: NS Feeding: N.p.o. till speech eval per nurse swallow screen Thrombo prophylaxis: SCDs Gastric Ulcer prophylaxis: None CODE STATUS: Full code Patient plan of care was discussed with the attending physician, Dr. Mondragon. Mariia Bertrand, PGY-2 Attending Provider Attestation/Addendum I have discussed and was present for the essential components of the history, physical examination, diagnosis, and treatment plan with the resident. I agree with the patient's care as documented by the resident and amended herein by me. David Mondragon DO. Patient seen and evaluated this AM. No acute events overnight, patient denies any residual deficits, on physical exam findings I did not appreciate any facial droop however left shoulder shrug may be slightly weaker than right as well as left shoulder flexion. MRI pending, echo pending, patient will continue on aspirin, Plavix and statin per neurology recommendations. A1c 6.9%, LDL 73. Will continue to monitor closely and patient doing well otherwise. Will likely continue DAPT for 21 days and then switch to aspirin alone pending final neurology recommendations. Although this document has been carefully reviewed, there may still be some phonetic and other typographical errors. These errors are purely grammatical due to imperfections in the software program and should not be construed in any way to compromise the substance of the patient's medical care during this visit.
[2024-11-24] MEDS: ASPIRIN EC 81 MG TABEC PO (14:52)
[2024-11-24] MEDS: CLOPIDOGREL BISULFATE 75 MG TABLET PO (14:52)
[2024-11-24] MEDS: SODIUM CHLORIDE 0.9% 1000 ML 1,000 ML 75 ML IV (17:58)
[2024-11-24] MEDS: ATORVASTATIN CALCIUM 20 MG TABLET 80 MG PO (20:24)
[2024-11-25] VITALS: BP 133/89; PULSE 86; RESP 20; TEMP 36.3; O2SAT 98
--- NOTE | 2024-11-25 | XR_ITS ---
Examinations: MRI Brain without intravenous contrast. MRA brain without intravenous contrast. MRA carotids without intravenous contrast 3-D vascular reconstructions Date and time of exam: November 25, 2024 0932 hours INDICATIONS: Numbness in the left arm and leg as well as space beginning November 23, 2024 Technique: Multiple axial and sagittal images of the brain have been obtained MRA brain carotid images without contrast obtained, including 3-D postprocessing, vascular maximum intensity projection images Findings: Sellaturcica is not enlarged. The optic chiasm and infundibular stalk are not remarkable. Prepontine and interpeduncular cisterns are not enlarged. No localized enlargement of the medulla or yennifer. Fourth ventricle and cerebellar tonsils normal in position. Subacute hemorrhage is not seen. Fourth ventricle is midline. Mass in the cerebellopontine angle region is not evident. 7th and 8th nerve complexes exhibits symmetry. Globes are symmetrical with no retro-orbital mass. Increased white matter signal not seen Diffusion-weighted images demonstrate no focus of restricted diffusion Mass-effect upon the ventricular system is not identified. MRA carotid images no significant carotid stenoses. MRA brain images no large vessel occlusions Impression: Negative for acute hemorrhage mass effect or midline shift No acute infarct No MR findings diagnostic for demyelinating disease
[2024-11-25] MEDS: ACETAMINOPHEN 325 MG TABLET 650 MG PO (00:17)
[2024-11-25] MEDS: SODIUM CHLORIDE 0.9% 1000 ML 1,000 ML 75 ML IV (03:28)
[2024-11-25 04:00] VITALS: BP 119/76; PULSE 77; PULSE 78; RESP 18; TEMP 36.3; O2SAT 99
[2024-11-25 06:25] LABS: Basophils # (Auto) 0.0 Thou/mm3 (0.0-0.2); Basophils % (Auto) 1 % (0-2.5); Eosinophils # (Auto) 0.2 Thou/mm3 (0.0-0.5); Eosinophils % (Auto) 3 % (0-10); Hematocrit 41.0 % (36.0-46.0); Hemoglobin 14.1 g/dL (12.0-16.0); Immature Granulocytes Auto 0.02 Thou/mm3 (0.00-0.00); Lymphocytes # (Auto) 2.4 Thou/mm3 (1.0-4.8); Lymphocytes % (Auto) 46 % (10-50); Mean Corpuscular HGB Conc 34.4 g/dl (31.0-37.0); Mean Corpuscular Hemoglobin 31.8 pg (25.0-35.0); Mean Corpuscular Volume 93 fL (80-100); Monocytes # (Auto) 0.8 Thou/mm3 (0.0-0.8); Monocytes % (Auto) 16 % (0-12); Neutrophils # (Auto) 1.7 Thou/mm3 (1.8-7.7); Neutrophils % (Auto) 34 % (37-80); Nucleated Red Blood Cell # 0.00 Thou/mm3 (0.00-0.00); Nucleated Red Blood Cell % 0 /100 WBC (0); Platelet Count 216 Thou/mm3 (140-440); RDW Standard Deviation 43.5 fL (36.4-46.3); Red Blood Count 4.43 Miln/mm3 (4.00-5.20); White Blood Count 5.1 Thou/mm3 (3.6-11.0)
[2024-11-25 06:53] LABS: Alanine Aminotransferase 21 U/L (10-49); Albumin, Serum 3.7 gm/dL (3.5-5.0); Albumin/Globulin Ratio 1.3 (1.2-2.2); Alkaline Phosphatase 111 U/L (46-116); Anion Gap 7 (7-16); Aspartate Amino Transferase 17 U/L (0-34); BUN/Creatinine Ratio 18 Ratio (12-20); Bilirubin,Total 0.5 mg/dL (0.3-1.2); Blood Urea Nitrogen 11 mg/dL (9-23); Calcium 9.1 mg/dL (8.3-10.6); Calcium (Corrected) 9.3 mg/dL (8.5-10.1); Carbon Dioxide 22.9 mMol/L (20.0-31.0); Chloride 111 mMol/L (98-107); Creatinine (Component) 0.6 mg/dL (0.6-1.3); Globulin 2.8 gm/dL (2.3-3.5); Glucose 135 mg/dL (74-106); Magnesium 2.1 mg/dL (1.6-2.6); Osmolality,Calculated 282 (275-295); Phosphorous 3.4 mg/dL (2.4-5.1); Potassium 3.6 mMol/L (3.4-5.1); Sodium 141 mMol/L (136-145); Total Protein 6.5 gm/dL (5.7-8.2); eGFR > 60 See Note
[2024-11-25 08:00] VITALS: BP 110/71; PULSE 77; PULSE 78; RESP 18; TEMP 36.1; O2SAT 96
[2024-11-25] MEDS: ASPIRIN EC 81 MG TABEC PO (08:14)
[2024-11-25] MEDS: CLOPIDOGREL BISULFATE 75 MG TABLET PO (08:14)
--- NOTE | 2024-11-25 09:05 | PC.SS ---
Follow up note: Waiting for neurology recommendations. MRI pending.
[2024-11-25 12:00] VITALS: BP 114/75; PULSE 76; PULSE 82; RESP 18; TEMP 36.5; O2SAT 97
--- NOTE | 2024-11-25 15:35 | PD.RESPRO ---
Documentation for date of: 11/25/24 Subjective Subjective Interval history: No acute events overnight.?Patient seen and examined at bedside this AM.?Patient was sitting up at bedside, doing well, no recurrence of weakness on the left side, numbness, or any other symptoms. Labs and vitals were reviewed. BP normalized without any antihypertensives.?Labs are all normal. MRI was negative for any findings for acute stroke or a demyelinating syndrome. Patient did well with PT eval. Awaiting echo and Neuro recommendations, then will be ready for d/c. Continue aspirin, Plavix, and statin for now. No further complaints at this time. Review of systems otherwise negative except what is mentioned above. Exam Vital Signs Temp Pulse Resp BP Pulse Ox O2 Del Method 97.7 F 76 18 114/75 97 Room Air 11/25/24 12:00 11/25/24 12:00 11/25/24 12:00 11/25/24 12:00 11/25/24 12:11/25/24 08:00 Narrative Exam Physical Exam General: Awake and in no acute distress. Conversational and non-toxic appearing. HEENT: Normocephalic, atraumatic, mucous membranes moist. No facial droop, no slurring of speech or dysarthria. Heart: Regular rate and rhythm, normal S1 and S2, no murmurs. Lungs: Clear to auscultation with no wheezing or crackles. Abdomen: Soft, nondistended, nontender, positive bowel sounds. ?No guarding or rebound tenderness. Neurologic: Alert and oriented x3, no gross neurological deficit, and patient able to move all 4 extremities. Strength 5/5 in bilateral upper and lower extremities, 5/5 finger and central office associate strength according to my examination. Extremities: No edema. Skin: No rash or ecchymoses. Objective Labs 11/25/24 06:08 11/25/24 06:08 Labs: Laboratory Results - last 24 hr 11/25/24 06:08 WBC 5.1 RBC 4.43 Hgb 14.1 Hct 41.0 MCV 93 MCH 31.8 MCHC 34.4 RDW Std Deviation 43.5 Plt Count 216 Neut % (Auto) 34 L Lymph % (Auto) 46 [place] % (Auto) 16 H Eos % (Auto) 3 Baso % (Auto) 1 Neut # (Auto) 1.7 L Lymph # (Auto) 2.4 [place] # (Auto) 0.8 Eos # (Auto) 0.2 Baso # (Auto) 0.0 Immature Gran # (Auto) 0.02 H Absolute Nucleated RBC 0.00 Immature Gran % 0 Nucleated RBC % 0 Sodium 141 Potassium 3.6 D Chloride 111 H Carbon Dioxide 22.9 Anion Gap 7 BUN 11 Creatinine 0.6 Estim Creat Clear Calc Not Performed. eGFR > 60 BUN/Creatinine Ratio 18 Glucose 135 H Calculated Osmolality 282 Calcium 9.1 Corrected Calcium 9.3 Phosphorus 3.4 Magnesium 2.1 Total Bilirubin 0.5 AST 17 ALT 21 Alkaline Phosphatase 111 D Total Protein 6.5 Albumin 3.7 D Globulin 2.8 Albumin/Globulin Ratio 1.3 Quality Measures Quality Measures stroke Suspected type of Stroke: Acute Ischemic Tenecteplase given: Reason(s) Tenecteplase not given: Outside the time window and Stroke severity too mild (non-disabling) not given Rehab services: PT evaluation ordered VTE Prophylaxis: mechanical Antithrombotic by day 2:: not indicated (describe) Statin ordered: <75 y/o high intensity dose Anticoagulation ordered for A-fib or flutter (current or hx): not indicated Assessment & Plan Assessment Current Active Medications: Generic Name Dose Route Start Last Admin Trade Name Freq PRN Reason Stop Dose Admin Acetaminophen 650 mg 11/23/24 22:59 11/25/24 00:17 Acetaminophen 325 Mg Tablet PO 12/23/24 22:58 650 mg Q6H PRN Administration Fever >100.4 Acetaminophen 1,000 mg 11/23/24 22:59 Acetaminophen 325 Mg Tablet PO 12/23/24 22:58 Q6H PRN PAIN SCALE 1-3 (mild Aspirin 81 mg 11/24/24 14:45 11/25/24 08:14 Aspirin Ec 81 Mg Tabec PO 12/24/24 14:44 81 mg QDAY JONA Administration Atorvastatin Calcium 80 mg 11/24/24 21:00 11/24/24 20:24 Atorvastatin Calcium 20 Mg Tablet PO 12/24/24 20:59 80 mg HS JONA Administration Clopidogrel Bisulfate 75 mg 11/24/24 14:45 11/25/24 08:14 Clopidogrel Bisulfate 75 Mg Tablet PO 12/24/24 14:44 75 mg QDAY JONA Administration Dextrose 25 ml 11/23/24 23:07 Dextrose 50%-Water Inj 50 Ml Syringe IV 12/23/24 23:06 Q15MIN PRN BG 50-70 responsive npo pt Dextrose 50 ml 11/23/24 23:07 Dextrose 50%-Water Inj 50 Ml Syringe IV 12/23/24 23:06 Q15MIN PRN BG <50 OR BG <70 & pt unresponsive Glucagon 1 mg 11/23/24 23:07 Glucagon Inj 1 Mg Vial IM Q15MIN PRN BG <70, and no IV access Sodium Chloride 1,000 mls @ 75 mls/hr 11/23/24 23:00 11/25/24 03:28 Ns IV 12/23/24 22:59 75 mls/hr .[id number] JONA Administration Insulin Human Lispro 0 unit 11/24/24 00:00 11/25/24 12:08 Insulin Lispro (Admelog) 1 Unit/0.01 Ml Unit SC 12/24/24 00:00 Not Given Q6HR JONA Protocol Labetalol HCl 10 mg 11/23/24 22:59 Labetalol Inj 5 Mg/Ml Vial 20 Ml IVP 12/23/24 22:59 Q6H PRN SBP>220, DBP>110 Ondansetron HCl 4 mg 11/24/24 05:58 Ondansetron Inj 2 Mg/Ml Inj 2 Ml IVP 12/24/24 05:57 Q6H PRN NAUSEA OR VOMITING Protocol Plan 54-year-old female with past medical history of diabetes and hypertension who presented to the ED due to left-sided weakness. Patient will be admitted for CVA workup. #CVA workup, rule out #Left-sided weakness Last well-known around 5-6 PM of 11/23/2024 patient began having left arm and leg numbness, as well as drooping of the left side of the face Symptoms resolved spontaneously on arrival to the ED Possible TIA versus complex migraine versus focal seizure versus musculoskeletal etiology No TNK was administered as NIH stroke scale on teleneuro evaluation was 0 and was out of window MRI stroke protocol negative for any findings for acute stroke or a demyelinating syndrome ? Aspirin 81 mg daily ? Plavix 75 mg daily ? High intensity statin ? IV fluids ? In-house neurology consulted, appreciate recs #Hypertension Permissive hypertension for first 24 hours, only 15% BP reduction ? Patient has been normotensive since admission without needing antihypertensives #Diabetes mellitus type 2 A1c 6.9 ? SSI ? Hypoglycemia protocol in place Health Maintenance: Disposition: Telemetry, stroke workup Fluids: NS Feeding: Carb consistent low Thrombo prophylaxis: SCDs Gastric Ulcer prophylaxis: None CODE STATUS: Full code Patient plan of care was discussed with the attending physician, Dr. Mondragon. Mariia Bertrand, PGY-2 Attending Provider Attestation/Addendum I have discussed and was present for the essential components of the history, physical examination, diagnosis, and treatment plan with the resident. I agree with the patient's care as documented by the resident and amended herein by me. David Mondragon, DO. Patient seen and evaluated this AM. Patient doing well, sitting up in chair this morning, she states symptoms are completely gone, strength throughout is 5/5, cranial nerves completely intact on physical examination. MRI brain resulted, no acute intracranial pathology, no acute stroke. Echo is still pending, will continue aspirin and Plavix, neurology consulted, appreciate recommendations. Although this document has been carefully reviewed, there may still be some phonetic and other typographical errors. These errors are purely grammatical due to imperfections in the software program and should not be construed in any way to compromise the substance of the patient's medical care during this visit.
--- NOTE | 2024-11-25 15:41 | PC.PT ---
PT eval only. Patient is I with transfers and ambulation without AD.
[2024-11-25 16:00] VITALS: BP 118/80; PULSE 74; PULSE 94; RESP 18; TEMP 36.3; O2SAT 96
[2024-11-25 20:00] VITALS: BP 130/84; PULSE 81; PULSE 84; RESP 19; TEMP 36.7; O2SAT 97
[2024-11-25] MEDS: ATORVASTATIN CALCIUM 20 MG TABLET 80 MG PO (20:48)
--- NOTE | 2024-11-25 22:59 | ECHO_ITS ---
Transthoracic Echo Report Ht (in): 60 Wt (lb): 169 Exam Location: Echo Lab Status: Inpatient Pedicab Driver: Elena Gamez Indications: Procedure Performed: BP: 119 / 76 HR: 78 MEASUREMENTS (Male / Female) Normal Values 2D ECHO LV Diastolic Diameter PLAX 3.7 cm 4.2 - 5.9 / 3.9 - 5.3 cm LV Systolic Diameter PLAX 2.4 cm IVS Diastolic Thickness 0.9 cm 0.6 - 1.0 / 0.6 - 0.9 cm LVPW Diastolic Thickness 0.8 cm 0.6 - 1.0 / 0.6 - 0.9 cm LV Relative Wall Thickness 0.5 LVOT Diameter 1.9 cm LA Volume Index 25.4 cm?/m? 16 - 28 cm?/m? DOPPLER AV Peak Velocity 108.0 cm/s AV Peak Gradient 4.7 mmHg LVOT Peak Velocity 79.1 cm/s LVOT Peak Gradient 2.5 mmHg AV Area Cont Eq pk 2.1 cm? MV Area PHT 3.6 cm? Mitral E Point Velocity 78.1 cm/s Mitral A Point Velocity 82.0 cm/s Mitral E to A Ratio 1.0 LV E' Lateral Velocity 10.9 cm/s Mitral E to LV E' Lateral Ratio 7.2 LV E' Septal Velocity 7.1 cm/s Mitral E to LV E' Septal Ratio 11.0 TR Peak Velocity 212.0 cm/s TR Peak Gradient 18.0 mmHg PV Peak Velocity 92.3 cm/s PV Peak Gradient 3.4 mmHg FINDINGS Left Ventricle Normal left ventricular size, wall thickness, systolic function with no obvious regional wall motion abnormalities. Normal left ventricular diastolic filling pattern for age. The ejection fraction is visually estimated at 60%. Right Ventricle The right ventricle is normal in size and systolic function. The estimated right ventricular systolic pressure, __ mmHg. Left Atrium The left atrium is normal by two-dimensional, color flow and Doppler imaging with no structural abnormalities, no thrombus formation present. Right Atrium The right atrium is normal by two-dimensional imaging, color flow and Doppler imaging with no structural abnormalities, no thrombus formation present. Atrial Septum The interatrial septum appears normal with no evidence of a shunt. Aorta The aorta is normal by two-dimensional, color flow and Doppler interrogation. Agitated saline bubble study negative for PFO/ASD. Mitral Valve The mitral valve is normal by two-dimensional, color flow and Doppler interrogation. There is no significant mitral valve regurgitation, stenosis or prolapse. Aortic Valve The aortic valve is trileaflet and normal by two-dimensional, color flow and Doppler interrogation. There is no significant aortic valve regurgitation. Tricuspid Valve The tricuspid valve is normal by two-dimensional, color flow and Doppler interrogation. There is trace tricuspid regurgitation. Pulmonic Valve The pulmonic valve is not well visualized. There is no significant pulmonic valve regurgitation. Vessels The pulmonary artery appears normal. The inferior vena cava pulmonary and hepatic veins appear normal. Pericardium The pericardium is normal by two-dimensional imaging. There is no significant pericardial effusion. CONCLUSIONS Indications: Stroke Work Up Normal LV. Estimated EF 60%. Normal Diastology. RV Normal. Trace TR. Bubble Study Negative for PFO/ASD. No Pericardial Effusion. Alex Summers (Electronically Signed) Final Date: 26 November 2024 11:51
--- NOTE | 2024-11-25 23:46 | ESPR_ITS ---
Documentation for date of: 11/25/24 Subjective Subjective Interval history: Patient was seen in telemetry with her family at the bedside, no complaints or recurrent symptoms after admission Exam - Neurology Vital Signs Temp Pulse Resp BP Pulse Ox O2 Del Method 98.0 F 84 19 130/84 97 Room Air 11/25/24 20:00 11/25/24 20:00 11/25/24 20:00 11/25/24 20:00 11/25/24 20:00 11/25/24 20:00 Narrative Exam GENERAL APPEARANCE: Well hydrated, well-nourished in no acute distress. HEENT: Normocephalic, atraumatic, extraocular movements intact. Pupils: Equal reacting to light and accommodation NECK: Supple, no JVD or bruits. CARDIOVASULAR: Heart: S1, S2 heard, regular without S3-S4 or murmur no rubs or gallops. LUNGS/CHEST: Clear to auscultation bilaterally. No rails, rhonchi, or wheezing. Normal inspection. ABDOMEN: Soft, nontender, with normal bowel sounds. No pulsatile masses. No rebound, rigidity, or guarding. Normal inspection and palpation. EXTREMITIES: Normal inspection and palpation. No edema, clubbing or cyanosis. SKIN: Warm and dry without rashes. Normal inspection. MUSCULOSKELETAL: No cervical, thoracic, lumbar or midline bony tenderness. Normal inspection. NEURO: Alert, awake and oriented x3. Cranial nerves: II through XII grossly intact. Speech and language: Normal with no dysarthria or dysphasia. Motor system: Tone and bulk: Normal: Strength: 5 out of 5 in all 4 extremities; No pronator drift noted. Deep tendon reflexes: 2+ bilaterally symmetrical. Plantar reflex: Downgoing bilaterally. Sensory system: Intact to all modalities of sensation bilaterally. Coordination: Intact to wxtame-tavk-yklca and ukuv-slke-qfrd test bilaterally. No ataxia, no dysmetria, or dysdiadochokinesia noted. No intention tremors noted. Gait: Normal. Toe, heel, tandem walk all are normal. Romberg: Negative. No signs of meningeal irritation noted. PSYCHIATRIC: Normal mood and affect. Objective Labs 11/26/24 05:38 11/25/24 06:08 Labs: Laboratory Results - last 24 hr 11/25/24 06:08 WBC 5.1 RBC 4.43 Hgb 14.1 Hct 41.0 MCV 93 MCH 31.8 MCHC 34.4 RDW Std Deviation 43.5 Plt Count 216 Neut % (Auto) 34 L Lymph % (Auto) 46 [place] % (Auto) 16 H Eos % (Auto) 3 Baso % (Auto) 1 Neut # (Auto) 1.7 L Lymph # (Auto) 2.4 [place] # (Auto) 0.8 Eos # (Auto) 0.2 Baso # (Auto) 0.0 Immature Gran # (Auto) 0.02 H Absolute Nucleated RBC 0.00 Immature Gran % 0 Nucleated RBC % 0 Sodium 141 Potassium 3.6 D Chloride 111 H Carbon Dioxide 22.9 Anion Gap 7 BUN 11 Creatinine 0.6 Estim Creat Clear Calc Not Performed. eGFR > 60 BUN/Creatinine Ratio 18 Glucose 135 H Calculated Osmolality 282 Calcium 9.1 Corrected Calcium 9.3 Phosphorus 3.4 Magnesium 2.1 Total Bilirubin 0.5 AST 17 ALT 21 Alkaline Phosphatase 111 D Total Protein 6.5 Albumin 3.7 D Globulin 2.8 Albumin/Globulin Ratio 1.3 Assessment & Plan Assessment and plan (1) TIA (transient ischemic attack): Status: Acute Assessment and plan: Resolved and no recurrence reported after admission. Reassurance given to the patient the negative MRI brain, CT angiogram of the head and neck. Continue with aspirin and statin as the LDL was 73. No focal neurological deficit noted patient is stable from neurology standpoint for discharge. F/u with Echo results. (2) Type 2 diabetes mellitus: Status: Chronic Assessment and plan: Under control as per the last A1c (3) Hypertension: Status: Acute Assessment and plan: Continue with the lisinopril
[2024-11-26] VITALS: BP 110/71; PULSE 77; PULSE 79; RESP 18; TEMP 36.6; O2SAT 94
[2024-11-26] MEDS: MELATONIN 3 MG TABLET PO (01:25)
[2024-11-26 04:00] VITALS: BP 118/78; PULSE 82; PULSE 90; RESP 24; TEMP 36.5; O2SAT 92
[2024-11-26 06:02] LABS: Basophils # (Auto) 0.0 Thou/mm3 (0.0-0.2); Basophils % (Auto) 1 % (0-2.5); Eosinophils # (Auto) 0.2 Thou/mm3 (0.0-0.5); Eosinophils % (Auto) 4 % (0-10); Hematocrit 39.8 % (36.0-46.0); Hemoglobin 13.8 g/dL (12.0-16.0); Immature Granulocytes Auto 0.01 Thou/mm3 (0.00-0.00); Lymphocytes # (Auto) 2.2 Thou/mm3 (1.0-4.8); Lymphocytes % (Auto) 40 % (10-50); Mean Corpuscular HGB Conc 34.7 g/dl (31.0-37.0); Mean Corpuscular Hemoglobin 31.2 pg (25.0-35.0); Mean Corpuscular Volume 90 fL (80-100); Monocytes # (Auto) 0.7 Thou/mm3 (0.0-0.8); Monocytes % (Auto) 12 % (0-12); Neutrophils # (Auto) 2.4 Thou/mm3 (1.8-7.7); Neutrophils % (Auto) 44 % (37-80); Nucleated Red Blood Cell # 0.00 Thou/mm3 (0.00-0.00); Nucleated Red Blood Cell % 0 /100 WBC (0); Platelet Count 196 Thou/mm3 (140-440); RDW Standard Deviation 41.5 fL (36.4-46.3); Red Blood Count 4.42 Miln/mm3 (4.00-5.20); White Blood Count 5.5 Thou/mm3 (3.6-11.0)
[2024-11-26 06:36] LABS: Alanine Aminotransferase 23 U/L (10-49); Albumin, Serum 3.9 gm/dL (3.5-5.0); Albumin/Globulin Ratio 1.4 (1.2-2.2); Alkaline Phosphatase 106 U/L (46-116); Anion Gap 4 (7-16); Aspartate Amino Transferase 20 U/L (0-34); BUN/Creatinine Ratio 18 Ratio (12-20); Bilirubin,Total 0.7 mg/dL (0.3-1.2); Blood Urea Nitrogen 11 mg/dL (9-23); Calcium 9.2 mg/dL (8.3-10.6); Calcium (Corrected) 9.3 mg/dL (8.5-10.1); Carbon Dioxide 25.0 mMol/L (20.0-31.0); Chloride 111 mMol/L (98-107); Creatinine (Component) 0.6 mg/dL (0.6-1.3); Globulin 2.8 gm/dL (2.3-3.5); Glucose 129 mg/dL (74-106); Magnesium 1.9 mg/dL (1.6-2.6); Osmolality,Calculated 280 (275-295); Phosphorous 3.5 mg/dL (2.4-5.1); Potassium 3.8 mMol/L (3.4-5.1); Sodium 140 mMol/L (136-145); Total Protein 6.7 gm/dL (5.7-8.2); eGFR > 60 See Note
[2024-11-26 08:00] VITALS: BP 119/82; PULSE 76; PULSE 99; RESP 18; TEMP 36.4; O2SAT 95
[2024-11-26] MEDS: CLOPIDOGREL BISULFATE 75 MG TABLET PO (08:27)
[2024-11-26] MEDS: ASPIRIN EC 81 MG TABEC PO (08:27)
--- NOTE | 2024-11-26 09:00 | CHAP ---
Visited with patient giving comfort and prayer.
--- NOTE | 2024-11-26 10:59 | PC.SS ---
Late note 11-25-24: SS met with patient regarding her d/c plan.? Pt is alert/oriented.? Pt was admitted for CVA Work Up.? Pt confirmed demographic information is correct on facesheet.? Pt resides with .? Pt ambulates independently without assistance or DME.? Pt is ok with all ADLs.? Patient?s pharmacy [facility] choice [facility] [address] Pt named her daughter, Lorena Banks medical decision maker if she is unable.? Patient?s choice is to return home upon d/c.? Pt states she is diabetic, has glucometer, and test strips.? Pt is not on dialysis. D/C plan:? Return home Next of Kin:? Lorena Banks, dtr, phone# [phone] PCP:? Dr. Pennie Mauro Address:? Correct on facesheet
[2024-11-26 12:00] VITALS: BP 113/79; PULSE 81; PULSE 98; RESP 17; TEMP 35.9; O2SAT 99
--- NOTE | 2024-11-26 14:47 | ESDS_ITS ---
Planned Discharge Date 11/26/24 DS: Providers Provider Date of admission: 11/23/24 23:06 Primary care physician: Pennie Mauro NP Admitting Provider: Yahir Hogan MD Attending Provider on Admission: Yahir Hogan MD Consults: 11/23/24 20:52 Consult to Neurology / Tele-Neurology Routine Comment: Consulting Provider: [facility] 11/23/24 23:02 Consult to Neurology / Tele-Neurology Routine Comment: Consulting Provider: Aamir Marie Referral Physical Therapy Routine Comment: Physician Instructions: Referral Speech Therapy Routine Comment: 11/24/24 08:15 Referral - [employer]IST [employer]er Routine Comment: kin Camargo Attending Provider on DC: Dr. Alanna DO Discharging Provider: RESIDENT Meenakshi DS: Diagnosis Problem List Completed Was Problem List Reviewed/Reconciled?: Yes Hospital Course Hospital Course Hospital course: Summary: Patient is a 54-year-old female with past medical history of diabetes and hypertension who presented to the ED on 11/23/24 for left-sided weakness, admitted for CVA workup. Imaging was negative and symptoms recovered without intervention. ED Course: ED vitals: BP 181/104, HR 113, saturating 97% on room air ED labs: CBC unremarkable, CMP unremarkable, UA negative for UTI however plus for glucose noted, U-Tox negative, EKG shows sinus tachycardia, head CT negative for acute hemorrhage, midline shift, mass effect, head/neck CTA shows no significant arterial stenosis. In the ED patient received aspirin 81, loading dose of Plavix, labetalol Reason for hospitalization: Though patient's left sided weakness had resolved upon ED arrival, she was admitted on 11/23/24 for CVA workup. Last known well was around 5-6PM on 11/23. No TNK was administered as NIH stroke scale on teleneuro evaluation was 0 and patient was out of window. MRI stroke protocol was initiated. CT head and MRI were negative for any signs of acute stroke and demyelinating syndrome. CTA head and neck was also negative for stenosis and large vessel occlusions. No arrhythmias during stay. US echocardiogram was unremarkable with only trace tricuspid regurgitation and estimated EF 60%. Neurology consulted. Patient was placed on ASA 81mg QD, Plavix 75 mg daily, and high intensity statin per recommendations. Patient was normotensive since admiss ion without needing antihypertensives. Diabetes was managed with insulin sliding scale, A1c as of 11/24/24 was 6.9. Discharge Recommendations: -Follow up with PCP within 1 week of discharge -Start aspirin 81 mg once daily and Clopidogrel 75mg qday for 21 days, and then continue Aspirin for stroke prevention, please followup with Dr Marie (Neurologist) within 2 weeks of discharge. -Start atorvastatin 80 mg once daily for cholesterol, goal LDL <70 -Continue rest of medications as previously prescribed -Return to the ED or call EMS if symptoms return and/or worsen. Hospital Diagnoses: #CVA workup, rule out #Left-sided weakness #Hypertension #Diabetes mellitus type 2 Disposition: Safe discharge to home. Senior resident attestation: Patient evaluated and examined at the bedside, plan of care discussed with rest of the team including my attending physician, except as noted. Samreen PGY3 Time Spent with Patient Time attestation: Total time spent providing and/or coordinating discharge services: at least 30 minutes of care and coordination Time spent: Greater than 30 minutes Quality: Stroke Pt Provided Written Stroke Discharge Instructions: Yes Exam Vital Signs Temp Pulse Resp BP Pulse Ox O2 Del Method 96.6 F L 81 17 113/79 99 Room Air 11/26/24 12:00 11/26/24 12:11/26/24 12:00 11/26/24 12:00 11/26/24 12:11/26/24 12:00 Narrative Exam Physical Exam General: Awake and in no acute distress. Conversational and non-toxic appearing. HEENT: Normocephalic, atraumatic, mucous membranes moist. Heart: Regular rate and rhythm, normal S1 and S2, no murmurs. Lungs: Clear to auscultation with no wheezing or crackles. Abdomen: Soft, nondistended, nontender, positive bowel sounds. No guarding or rebound tenderness. Neurologic: Alert and oriented x3, no gross neurological deficit. Strength 5/5 in bilateral upper and lower extremities, 5/5 finger and baseball scout strength. Patient able to move all 4 extremities. Extremities: No edema. Skin: No rash or ecchymoses. Discharge Plan Plan Patient Disposition: HOME (Self Care) Patient condition on transfer: Stable Care Plan Goals: Discharge Recommendations: -Follow up with PCP within 1 week of discharge -Start aspirin 81 mg once daily and Clopidogrel 75mg qday for 21 days, and then continue Aspirin for stroke prevention, please followup with Dr marie (Neurologist) within 2 weeks of discharge. -Start atorvastatin 80 mg once daily for cholesterol, goal LDL <70 -Continue rest of medications as previously prescribed -Return to the ED or call EMS if symptoms return and/or worsen. Prescriptions/Referrals Prescriptions/Med Rec: New atorvastatin 80 mg tablet 80 mg PO HS 30 Days Qty: 30 0RF aspirin 81 mg tablet 81 mg PO QDAY 30 Days Qty: 30 0RF clopidogrel 75 mg tablet 75 mg PO QDAY Qty: 21 0RF Continued lisinopril 20 mg tablet 20 mg PO DAILY Patient Comments: TAKE 1 TABLET EVERY DAY BY ORAL ROUTE DIRECTED, FOR BLOOD PRESSURE. dapaglifloz propaned-metformin [Xigduo XR] 5-1,000 mg tablet, IR - ER, biphasic 24hr 1 tab PO BID Patient Comments: TAKE 1 TABLET BY MOUTH TWICE A DAY Ozempic 0.25 mg or 0.5 mg (2 mg/3 mL) pen injector 0.25 mg SUBCUT .EVERY WEEK Patient Comments: INJECT 0.25 MG EVERY WEEK BY SUBCUTANEOUS ROUTE DIRECTED FOR 28 DAYS, FOR DIABETES. Referrals: Pennie Mauro NP [Primary Care Provider] - Aamir Marie MD [Physician] - Patient/Caregiver Discharge Instructions Discharge Activity: activity as tolerated and resume usual activities Education Materials: Diabetes and Heart Disease, Low-Salt Choices, What Is a TIA?, Anatomy of the Brain, Risk Factors for Stroke, Diabetes Exercise Plan, Diabetes and High Blood Pressure Print Language: Indonesian Stand Alone Forms: Maryan Award Info., Patient Portal Info Letter Discharge Order Discharge Orders: Discharge (Routine); Ordered 11/26/24 Ordered By: Joselyn Chung Quality Discharge Quality Measures VTE prophylaxis Attestestation MD Attestation I have discussed and was present for the essential components of the discharge history, physical examination, diagnosis, and discharge treatment plan with the resident. I agree with the patient's discharge care as documented by the resident and amended herein by me. David Mondragon, . The patient understood all discharge instructions, all questions were answered satisfactorily. The patient was instructed to return to the Emergency Department is symptoms worsened or persisted. Patient was stable, afebrile, tolerating p.o. intake and ambulatory at time of discharge home. Patient instructed follow-up with her primary care provider within 1 week of discharge for further evaluation. Although this document has been carefully reviewed, there may still be some phonetic and other typographical errors. These errors are purely grammatical due to imperfections in the software program and should not be construed in any way to compromise the substance of the patient's medical care during this visit.
== END 2024-11-26 13:00 | disposition home or self-care (01) | DRG 861 ==
LOC: SERX 23:13 → SERHOLD 23:16 → S2NX 11-24 17:57
PROVIDERS: Physician Assistant; Student in an Organized Health Care Education/Training Program; Admitting Provider Internal Medicine; Emergency Provider Emergency Medicine; PCP Nurse Practitioner Family; Visit Provider Internal Medicine
DX: R53.1 Weakness (principal); I10 Essential (primary) hypertension; E11.9 Type 2 diabetes mellitus without complications; R00.0 Tachycardia, unspecified; R29.810 Facial weakness; Z79.02 Long term (current) use of antithrombotics/antiplatelets; Z79.82 Long term (current) use of aspirin; Z79.899 Other long term (current) drug therapy; Z79.84 Long term (current) use of oral hypoglycemic drugs
CPT/HCPCS: 36415; 70450; 70496; 70498; 70544; 80053; 80061; 80307; 81001; 83036; 83735; 84100; 84443; 84484; 85025; 85610; 85730; 92610; 93005; 93306; 97161; 99285; A4649; J7030; Q9967; A9270

== ENCOUNTER → 2025-05-13 | Outpatient (CLI) | payer MEDICAID, SELFPAY ==
--- NOTE | 2025-05-13 13:30 | XR_ITS ---
Examination: Screening digital mammography, bilateral Computer aided detection 3-D breast Tomosynthesis, bilateral Date and time of exam: May 13, 2025, 1257 hours, compared to June 12, 2023 Indication: Screening Technique: Nonmagnified MLO, CC views of the breasts to been obtained, reconstructed from 3-D Tomosynthesis images. R2 computer aided detection program utilized for evaluation of suspicious masses and/or abnormal calcifications. 3-D Tomosynthesis images obtained. Findings: Scattered areas of fibroglandular density. Benign calcifications. No multiple suspicious masses Impression: BI-RADS category II: Benign Findings. Recommend 1 year follow-up mammogram.
== END | disposition home or self-care (01) ==
LOC: CDIM 12:47
PROVIDERS: Referring Provider Internal Medicine; Visit Provider Internal Medicine
DX: Z12.31 Encounter for screening mammogram for malignant neoplasm of breast (principal); R92.323 Mammographic fibroglandular density, bilateral breasts; R92.1 Mammographic calcification found on diagnostic imaging of breast
CPT/HCPCS: 77063; 77067